=== PATIENT | male | born 1980 | race Caucasian/White ===

== ENCOUNTER → 2019-11-17 | Outpatient (CLI) | payer OTHER, SELFPAY ==
[2019-11-10 06:10] VITALS: BMI 36.9
== END | disposition home or self-care (01) ==
PROVIDERS: Referring Provider Internal Medicine Critical Care Medicine; Visit Provider Internal Medicine Critical Care Medicine
DX: G47.33 Obstructive sleep apnea (adult) (pediatric) (principal)
CPT/HCPCS: 95806

== ENCOUNTER → 2019-12-05 20:00 | Outpatient (CLI) | payer OTHER, SELFPAY ==
[2019-11-10 06:10] VITALS: BMI 36.9
== END ==
PROVIDERS: PCP Nurse Practitioner; Referring Provider Nurse Practitioner Acute Care; Visit Provider Nurse Practitioner Acute Care
DX: G47.30 Sleep apnea, unspecified (principal)
CPT/HCPCS: 95811